=== PATIENT | male | born 1945 | race Caucasian/White ===

== ENCOUNTER 2020-09-07 17:06 | Emergency (ER) | payer OTHER ==
[2020-09-07] MEDS ORDERED: CEPHALEXIN500 M1 PO (18:11)
[2020-09-07 18:21] VITALS: BP 154/95
== END 2020-09-07 18:16 | disposition home or self-care (01) ==
LOC: ED 17:06
DX: S01.81XA Laceration without foreign body of other part of head, initial encounter (principal); E11.9 Type 2 diabetes mellitus without complications; J44.9 Chronic obstructive pulmonary disease, unspecified; Z87.891 Personal history of nicotine dependence; W22.8XXA Striking against or struck by other objects, initial encounter

== ENCOUNTER 2023-03-10 17:07 | Emergency (ER) | payer OTHER ==
[~2023-03-10 17:07] MED LIST: CEPHALEXIN500 M1 PO
[2023-03-10 18:30] LABS: BASO # 0.03 K/mm3 (0.02-0.10); EOS # 0.08 K/mm3 (0.04-0.40); EOS % 0.8 % (0.0-4.0); HEMATOCRIT 48.9 % (42.0-52.0); HEMOGLOBIN 15.1 g/dL (13.5-18.0); LYMPH# 4.23 K/mm3 (1.50-4.00); MEAN CELL VOLUME 109 fl (78-100); MEAN CORPUSCULAR HEMOGLOBIN 34 pg (27-31); MEAN CORPUSCULAR HGB CONC 31 g/dL (33-37); MEAN PLATELET VOLUME 10.3 fl (7.4-10.4); MONO # 0.95 K/mm3 (0.20-0.80); NEU # 4.86 K/mm3 (1.40-6.50); PLATELET COUNT 127 K/mm3 (130-400); RED CELL DISTRIBUTION WIDTH 13.5 % (11.5-14.5); WHITE BLOOD COUNT 10.6 K/mm3 (4.8-10.8)
[2023-03-10 18:32] LABS: ALBUMIN 3.4 g/dL (3.4-4.8); CALCIUM 10.3 mg/dL (8.3-10.5); TOTAL BILIRUBIN 0.9 mg/dL (0.2-1.2); TOTAL PROTEIN 6.6 g/dL (6.2-8.1)
== END 2023-03-10 19:38 | disposition expired ==
LOC: ED 17:07
PROVIDERS: Family Medicine
DX: I46.9 Cardiac arrest, cause unspecified (principal); Z87.891 Personal history of nicotine dependence
CPT/HCPCS: J0171